=== PATIENT | female | born 1995 | race Two or more races ===

== ENCOUNTER 2023-05-01 17:35 | Emergency (ER) | payer SELFPAY ==
[~2023-05-01] VITALS: Ht 165.1 cm; Wt 92.6 kg
[2023-05-01 17:40] VITALS: BP 116/76
[2023-05-01] MEDS ORDERED: TETANUS-DIPTH-ACEL PERTUSSIS 0.5ML SYR Tdap IM ONE (19:15)
[2023-05-01] MEDS ORDERED: NEOMYCIN-BACITRACIN-POLYM UNITDOSE PKG TOP OINT TOP ONE (19:15)
[2023-05-01] MEDS ORDERED: AMOXICILLIN/CLAVUL 875 MG TAB PO ONE (19:15)
[2023-05-01] MEDS ORDERED: MUPI2OIN2 EX (19:20)
[2023-05-01] MEDS ORDERED: AUG875T PO (19:20)
== END 2023-05-01 20:46 | disposition home or self-care (01) ==
LOC: ER 17:35
DX: S41.131A Puncture wound without foreign body of right upper arm, initial encounter (principal); S41.151A Open bite of right upper arm, initial encounter; W54.0XXA Bitten by dog, initial encounter; Y93.89 Activity, other specified; Y92.89 Other specified places as the place of occurrence of the external cause; Y99.8 Other external cause status
CPT/HCPCS: 90471; 90715; 96372